=== PATIENT | male | born 1985 | race Caucasian/White ===

== ENCOUNTER 2018-01-09 07:38 | Inpatient (IN) | payer OTHER ==
[2018-01-09] MEDS: SOD CHLORIDE 0.9% 1,000 ML IV ×3 (09:01→23:40)
[2018-01-09] MEDS ORDERED: DOCUSATE SODIUM 100 MG CAP PO (14:00)
[2018-01-09] MEDS ORDERED: NACL 0.9% 3 ML SYG IV (14:00)
[2018-01-09] MEDS ORDERED: MAGNESIUM HYDROXIDE 30ML CUP PO (14:00)
[2018-01-09] MEDS ORDERED: ACETAMINOPHEN 325 MG TAB PO (14:00)
[2018-01-09] MEDS: PIPER-TAZO 3.375 GM IV (PMX) 100 ML IVPB ×2 (14:33→22:29)
[2018-01-10 05:25] LABS: ADD MAN DIFF? NO
[2018-01-10] MEDS: PIPER-TAZO 3.375 GM IV (PMX) 100 ML IVPB ×3 (05:32→21:06)
[2018-01-10 05:34] LABS: BASOPHILS % 0.6 % (0.0-2.0); EOSINOPHILS # 0.2 10^3/ul (0.0-0.5); HEMATOCRIT 46.2 % (42.0-52.0); HEMOGLOBIN 15.1 g/dl (14.0-18.0); LYMPHOCYTES # 1.5 10^3/ul (0.8-2.9); LYMPHOCYTES % 22.4 % (15.0-51.0); MEAN CORPUSCULAR HEMOGLOBIN 33.3 pg (29.0-33.0); MEAN CORPUSCULAR HGB CONC 32.7 g/dl (32.0-37.0); MEAN CORPUSCULAR VOLUME 101.8 fl (82.0-101.0); MEAN PLATELET VOLUME 10.3 fl (7.4-10.4); MONOCYTE # 0.6 10^3/ul (0.3-0.9); MONOCYTES % 8.7 % (0.0-11.0); NEUTROPHIL # 4.4 10^3/ul (1.6-7.5); PLATELET COUNT 305 10^3/UL (140-415); RED BLOOD COUNT 4.54 10^6/ul (4.70-6.10); RED CELL DISTRIBUTION WIDTH 15.1 % (11.5-14.5)
[2018-01-10 05:34] LABS: WHITE BLOOD COUNT 6.7 10^3/ul (4.8-10.8)
[2018-01-10 05:53] LABS: ALANINE AMINOTRANSFERASE 34 IU/L (13-69); ALBUMIN 3.3 g/dl (3.3-4.9); ALKALINE PHOSPHATASE 68 IU/L (42-121); ANION GAP 9 (8-16); ASPARTATE AMINO TRANSFERASE 40 IU/L (15-46); BILIRUBIN,INDIRECT 0.7 mg/dl (0-1.1); BILIRUBIN,TOTAL 0.7 mg/dl (0.2-1.3); BLOOD UREA NITROGEN 10 mg/dl (7-20); CALCIUM 8.9 mg/dl (8.4-10.2); CARBON DIOXIDE 32 mmol/L (21-31); CHLORIDE 106 mmol/L (97-110); CREATININE 1.17 mg/dl (0.61-1.24); GLUCOSE 102 mg/dl (70-220); MAGNESIUM 2.3 mg/dl (1.7-2.5); SODIUM 142 mmol/L (135-144); TOTAL PROTEIN 6.6 g/dl (6.1-8.1)
[2018-01-10] MEDS: SOD CHLORIDE 0.9% 1,000 ML IV (09:40)
[2018-01-11] MEDS: SOD CHLORIDE 0.9% 1,000 ML IV ×3 (00:58→18:22)
[2018-01-11] MEDS: PIPER-TAZO 3.375 GM IV (PMX) 100 ML IVPB ×3 (05:15→22:15)
[2018-01-11] MEDS ORDERED: DEXAMETHASONE 4 MG/ML 1 ML INJ (07:00)
[2018-01-11] MEDS ORDERED: LIDOCAINE 2% (SDV) 5 ML INJ (07:00)
[2018-01-11] MEDS ORDERED: CEFAZOLIN 1 GM INJ (07:00)
[2018-01-11] MEDS ORDERED: METOCLOPRAMIDE 10 MG INJ (07:00)
[2018-01-11] MEDS: morphine 2 MG INJ IV ×3 (07:58→22:15)
[2018-01-11] MEDS ORDERED: FENTAnyl 50 MCG/ML VIAL (14:56)
[2018-01-11] MEDS ORDERED: MIDAZOLAM 1 MG/ML 2 ML INJ (14:56)
[2018-01-11] MEDS ORDERED: ONDANSETRON 4 MG INJ (14:58)
[2018-01-11] MEDS ORDERED: SUCCINYLCHOLINE CHLORIDE 100 MG/5 ML SYG IV (15:02)
[2018-01-11] MEDS ORDERED: PROPOFOL 20 ML (15:02)
[2018-01-11] MEDS ORDERED: ROCURONIUM 50 MG INJ (15:03)
[2018-01-11] MEDS: LIDOCAINE 1% (MPF) 30 ML INJ (15:44)
[2018-01-11] MEDS: BUPIVACAINE 0.25%/EPI (SDV) 30 ML INJ (15:44)
[2018-01-11] MEDS ORDERED: FENTAnyl 50 MCG/ML VIAL IV ×2 (16:00)
[2018-01-11] MEDS ORDERED: KETOROLAC 30 MG INJ IV (16:00)
[2018-01-11] MEDS ORDERED: ONDANSETRON 4 MG INJ IV (16:00)
[2018-01-11] MEDS ORDERED: HYDROmorphONE 1 MG/5 ML IV SYRINGE IV (16:00)
[2018-01-11] MEDS ORDERED: DIPHENHYDRAMINE 50 MG INJ IV (16:00)
[2018-01-11] MEDS ORDERED: LIDOCAINE 1% (MPF) 30 ML INJ (16:52)
[2018-01-11] MEDS ORDERED: BUPIVACAINE 0.25%/EPI (MDV) 50 ML VIAL INJ (16:52)
[2018-01-11] MEDS ORDERED: IOHEXOL 300MG/ML 30 ML BTL (16:52)
[2018-01-11] MEDS ORDERED: HYDROCODONE/APAP (5/325) TAB PO (17:00)
[2018-01-11] MEDS: ONDANSETRON 4 MG INJ IV ×2 (17:13→18:22)
[2018-01-11] MEDS: MEPERIDINE 25 MG INJ IV (17:17)
[2018-01-11] MEDS: HYDROmorphONE 1 MG/5 ML IV SYRINGE IV ×3 (17:17→17:48)
[2018-01-11] MEDS: IPRATROPIUM (NEB) 0.5 MG/2.5 ML AMP HHN (17:21)
[2018-01-12] MEDS: morphine 2 MG INJ IV ×2 (03:04→08:57)
[2018-01-12] MEDS: PIPER-TAZO 3.375 GM IV (PMX) 100 ML IVPB (06:03)
[2018-01-12] MEDS: HYDROCODONE/APAP (5/325) TAB PO (06:06)
[2018-01-12 06:36] LABS: ALANINE AMINOTRANSFERASE 66 IU/L (13-69); ALBUMIN 3.8 g/dl (3.3-4.9); ALBUMIN/GLOBULIN RATIO 1.05; ALKALINE PHOSPHATASE 69 IU/L (42-121); ANION GAP 14 (8-16); ASPARTATE AMINO TRANSFERASE 80 IU/L (15-46); BILIRUBIN,INDIRECT 0.8 mg/dl (0-1.1); BILIRUBIN,TOTAL 0.8 mg/dl (0.2-1.3); BLOOD UREA NITROGEN 9 mg/dl (7-20); CARBON DIOXIDE 25 mmol/L (21-31); CHLORIDE 105 mmol/L (97-110); CREATININE 1.09 mg/dl (0.61-1.24); GLUCOSE 108 mg/dl (70-220); POTASSIUM 4.6 mmol/L (3.5-5.1); SODIUM 139 mmol/L (135-144); TOTAL PROTEIN 7.4 g/dl (6.1-8.1)
[2018-01-12] MEDS ORDERED: OXYCODONE/ACETAMINOPHEN (10/325) TAB PO (10:00)
[2018-01-12] MEDS ORDERED: CALCIUM CARBONATE 750 MG CHEW TAB PO (10:00)
[2018-01-12] MEDS ORDERED: ALBUTEROL 0.083% (NEB) 2.5 MG/3 ML AMP HHN (10:00)
[2018-01-12] MEDS ORDERED: OXYCODONE/ACETAMINOPHEN (5/325) TAB PO (10:00)
[2018-01-12] MEDS: PANTOPRAZOLE (EC) 40 MG TAB PO (10:06)
[2018-01-12] MEDS: KETOROLAC 30 MG INJ IV ×2 (13:25→22:36)
[2018-01-13] MEDS: PANTOPRAZOLE (EC) 40 MG TAB PO (06:28)
== END 2018-01-13 13:45 | disposition home or self-care (01) | DRG 419 ==
LOC: E/R 07:38 → MS1 01-11 16:29 → MS3 07:53
PROC: 0FT44ZZ Resection of Gallbladder, Percutaneous Endoscopic Approach (ICD-10-PCS; principal; 2018-01-11 14:00)
DX: K80.12 Calculus of gallbladder with acute and chronic cholecystitis without obstruction (principal); F17.200 Nicotine dependence, unspecified, uncomplicated
CPT/HCPCS: 80053; 83735; 85025; 88304; 94664; 99285-25

== ENCOUNTER 2018-11-11 22:38 | Emergency (ER) | payer OTHER ==
[2018-11-12] MEDS: CEFTRIAXONE 1 GM INJ IM (00:14)
[2018-11-12] MEDS: DIPHTH/TET/ACEL PERTUSS (ADULT) 0.5 ML VIAL IM* (00:15)
[2018-11-12] MEDS: LIDOCAINE 2% (MDV) 20 ML INJ INJ (00:15)
== END 2018-11-12 02:49 | disposition home or self-care (01) ==
LOC: FTE 11-12 02:49
DX: L03.116 Cellulitis of left lower limb (principal); F17.210 Nicotine dependence, cigarettes, uncomplicated; Z23 Encounter for immunization
CPT/HCPCS: 73630; 73630-LT; 90471; 90715; 96372; 99284-25